=== PATIENT | male | born 1945 | race Caucasian/White ===

== ENCOUNTER → 2017-09-26 | Outpatient (CLI) | payer MEDICARE ==
[~2017-09-26] MED LIST: ASPIR-LOW81 MG; ASPIRIN325 MG PO; CIALIS5 MG; HYDROCHLOROTHIA50 MG PO; LEVOTHYROXINE25 MCG PO; LIPITOR20 MG PO; MECLIZINE HCL25 MG PO; METOPROLOL TART25 MG PO; NEXIUM40 MG; SYNTHROID150 MCG; TRILEPTAL300 MG PO; ZETIA10 MG; ZETIA10 MG PO
--- NOTE | 2017-09-26 12:06 | Diagnostic Imaging Report ---
EXAM: CT Chest WITHOUT contrast INDICATION: \[id number] \S\[id number] \S\CARDIOMEGALY / SHORTNESS OF BREATH COMPARISON: Chest CT dated 04/10/2017 TECHNIQUE: Chest was scanned utilizing a multidetector helical scanner from the lung apex through the level of the adrenal glands without administration of IV contrast. Absence of intravenous contrast decreases sensitivity for detection of lymphadenopathy and vascular pathology. Coronal and sagittal reformations were obtained. Routine protocol was performed. IV CONTRAST: None COMPLICATIONS: None RADIATION DOSE: Total DLP: 630.59 mGy*cm Estimated effective dose: (DLP x 0.014 x size factor) mSv CTDIvol has been reviewed. It is below the limits set by the Radiation Protocol Committee (RPC). FINDINGS: LINES/ TUBES: Left brachiocephalic and right subclavian vein stents are again visualized. LUNGS AND AIRWAYS: Again seen segmental right upper lobe atelectasis. Otherwise, no focal consolidation. PLEURA: Moderate right pleural effusion, increased from prior CT. HEART AND MEDIASTINUM: The thyroid gland is not visualized. No mediastinal, hilar or axillary lymphadenopathy. The heart is normal in size.. Enlarged right atrium. There is no pericardial effusion. Trace pericardial effusion, seen on prior CT, has resolved. Main pulmonary artery measures 3 cm. UPPER ABDOMEN: Hepatic hypodensities are seen, measuring up to 1.8 cm (series 2, images 47, 46, and 57). Moderate size hiatal hernia. BONES: Left shoulder arthroplasty. SOFT TISSUES: Unremarkable. IMPRESSION: 1. Moderate size right pleural effusion, increased from CT dated 04/10/2017. 2. Unchanged segmental right upper lobe atelectasis. 3. Moderate size hiatal hernia. 4. Hepatic hypodensities, probably cysts. If clinically indicated, right upper quadrant ultrasound can be obtained to better characterize. Signed by: Dr. León Saez MD on 09/26/2017 12:02 PM
== END ==
LOC: RAD 09:53
PROVIDERS: ATTEND Family Medicine
DX: R06.02 Shortness of breath (principal); J40 Bronchitis, not specified as acute or chronic; Z85.110 Personal history of malignant carcinoid tumor of bronchus and lung
CPT/HCPCS: 71250; 93306